=== PATIENT | female | born 1950 | race Caucasian/White ===

== ENCOUNTER 2022-12-05 09:43 | Inpatient (IN) ==
--- NOTE | 2022-12-05 10:14 | XRay Report ---
XR chest 1V portable HISTORY: 72 years-old Female Chest pain, nonspecific acute chest pain COMPARISON: None TECHNIQUE: AP view of the chest FINDINGS: Cardiac silhouette is enlarged. Pulmonary vascular congestion with interstitial coarsening. No pneumo thorax, large pleural effusion or lobar airspace consolidation. Degenerative changes of the shoulders and spine. IMPRESSION: Cardiomegaly with pulmonary vascular congestion. ACT 112: Negative or not required by law. The above report was generated using voice recognition software. It may contain grammatical, syntax o r spelling errors. Electronically signed by: Nam Aponte M.D. 12/05/2022 10:12 AM
--- NOTE | 2022-12-05 10:50 | Emergency Department Note ---
Impression & Plan Chest pain, Angina pectoris, unstable, Pulmonary edema, Congestive heart failure ED Provider Note INFORMANT: Patient ED PROVIDER(S): Harjit Quintanilla DO CHIEF COMPLAINT: Exertional chest pain PLAN: Disposition: Admission Condition: Good Outpatient prescription management: none Referral: I spoke with the hospitalist, who will see the patient for admission/observation and further evaluation and consultation. MEDICAL DECISION MAKING: This is a 72-year-old female who presents to the ED with a chief complaint of exertional chest pain. She also reports some shakiness. She was seen at the [facility] clinic today and was sent here for further evaluation of atrial fib rillation. The patient reports that she has a history of atrial fibrillation. She is chronically on Eliquis for this. The patient does report that her chest pain is associated with shortness of breath when she goes up the stairs. She states this resolves with rest. The patient denies any other significant symptoms. Her physical exam reveals diminished breath sounds bilaterally with some crackles in the bases. A chest x-ray shows evidence of pulmonary vascular congestion pulmonary edema. Twelve-lead EKG shows A-fib at a rate of 77. This is chronic. CBC was unremarkable. Chemistry panel was unremarkable for electrolyte abnormality.. Troponin was negative for myocardial infarction. The patient was treated with IV Lasix here. She will be seen by the hospitalist for further evaluation and care. Triage Nursing notes reviewed. Vital Signs: reviewed Prior /Outside records reviewed: [facility] notes reviewed from today. They show the patient arrived there for chest pain and shakiness. Chest pain off and on further notes. She was told to go to the emergency room the other day but did not want to go according to the notes. Chronically on apixaban for A-fib Differential diagnosis: Differential includes unstable angina, congestive heart failure, myocardial infarction, pericardial fusion, PE, other Diagnostics, as interpreted by me: 12 lead ECG: Atrial fibrillation rate of 77. PVC. No ST elevation. Atrial fibrillation is chronic. Cardiac Monitoring ordered: Atrial fibrillation with controlled ventricular response. Medical decision rules: none Imaging studies: Chest x-ray: Pulmonary edema Procedures: none. Critical care: none. HPI: See MDM above. PAST MEDICAL HISTORY: See Below PAST SURGICAL HISTORY: See Below SOCIAL HISTORY: See Below HOME MEDICATIONS: See Below ALLERGIES: See Below VITALS: See Below PHYSICAL EXAMINATION: CONSTITUTIONAL/VITAL SIGNS: Reviewed GENERAL: Non-toxic in appearance. INTEGUMENTARY: Warm, dry, and [place]. HEAD: Normocephalic. EYES: without scleral icterus. ENT/OROPHARYNX: clear and moist. RESPIRATORY: No increased work of breathing. Lungs clear. CARDIOVASCULAR: Regular rate. Regular rhythm. GI/ABDOMEN: Soft and nontender. . EXTREMITIES: Normal NEUROLOGICAL: Intact without focal deficits. PSYCHIATRIC: Normal affect. MUSCULOSKELETAL: Normal. TRIAGE NURSING DOCUMENTATION REVIEWED. Past Med/Surg History Social History Smoking Status: Never smoker Feels Safe at Home: Yes Results & Data (ED) Vital Signs Vital Signs - 24 hr 12/05/22 09:45 12/05/22 10:33 Temperature 36.7 C Temperature Source Oral Pulse Rate 85 79 Pulse Rate from SpO2 Sensor 82 Respiratory Rate 18 24 Blood Pressure 156/97 H 179/124 H Blood Pressure Mean 116 142 Pulse Oximetry 97 95 Oxygen Delivery Method Room Air Room Air Sepsis Recent Fever Within 48 Hours No Sepsis New/Unexplained Change in Mental Status No Sepsis Action Taken by Nursing No Action Required Laboratory Data 12/05/22 11:12 12/05/22 11:12 Lab Results 12/05/22 12/05/22 12/05/22 Range/Units 11:02 11:12 11:12 WBC 9.92 (4.8-10.8) K/ul RBC 4.62 (4.20-5.40) M/uL Hgb 14.2 (12.0-16.0) g/dl Hct 43.8 (37.0-47.0) % MCV 94.8 (80.0-100.0) fL MCH 30.7 (25.0-34.0) pg MCHC 32.4 (32.0-36.0) g/dL RDW Std Deviation 54.0 H (36.4-46.3) fL RDW Coeff of Yen 15.4 H (11.5-14.5) % Plt Count 256 (130-400) K/uL MPV 9.7 (9.4-12.4) fL Immature Gran % (Auto) 0.3 % Neut % (Auto) 73.2 % Lymph % (Auto) 18.1 % [place] % (Auto) 5.5 % Eos % (Auto) 2.6 % Baso % (Auto) 0.3 % Neut # (Auto) 7.25 H (1.40-6.50) K/uL Lymph # (Auto) 1.80 (1.2-3.4) K/uL [place] # (Auto) 0.55 (0.11-0.59) K/uL Eos # (Auto) 0.26 (0-0.50) K/uL Baso # (Auto) 0.03 (0-0.2) K/uL Immature Gran # (Auto) 0.03 (0.01-0.20) K/uL PT 11.9 (9.0-12.0) Seconds INR 1.1 (0.9-1.1) APTT 29.8 (21.0-31.0) Seconds PTT Ratio 1.1 Sodium (136-145) mmol/L Potassium (3.5-5.1) mmol/L Chloride (98-107) mmol/L Carbon Dioxide (21-32) mmol/L Anion Gap (3-11) BUN (6-23) mg/dl Creatinine (0.6-1.2) mg/dl Est Cr Clr Drug Dosing ml/min Est GFR ( Amer) ml/min Est GFR (Non-Af Amer) ml/min BUN/Creatinine Ratio (10-20) Glucose (70-99(Fasting)) mg/dl Calcium (8.5-10.1) mg/dl Total Bilirubin (0.2-1.0) mg/dl AST (13-39) U/L ALT (7-52) U/L Alkaline Phosphatase (34-104) U/L Troponin I High Sens (0-14) pg/ml Total Protein (6.0-8.3) gm/dl Albumin (3.4-5.0) gm/dl Globulin (2.5-4.0) gm/dl Albumin/Globulin Ratio (0.9-2) Lipase (11-82) U/L SARS-CoV-2, RNA, NAAT NEGATIVE (NEGATIVE) 12/05/22 Range/Units 11:12 WBC (4.8-10.8) K/ul RBC (4.20-5.40) M/uL Hgb (12.0-16.0) g/dl Hct (37.0-47.0) % MCV (80.0-100.0) fL MCH (25.0-34.0) pg MCHC (32.0-36.0) g/dL RDW Std Deviation (36.4-46.3) fL RDW Coeff of Yen (11.5-14.5) % Plt Count (130-400) K/uL MPV (9.4-12.4) fL Immature Gran % (Auto) % Neut % (Auto) % Lymph % (Auto) % [place] % (Auto) % Eos % (Auto) % Baso % (Auto) % Neut # (Auto) (1.40-6.50) K/uL Lymph # (Auto) (1.2-3.4) K/uL [place] # (Auto) (0.11-0.59) K/uL Eos # (Auto) (0-0.50) K/uL Baso # (Auto) (0-0.2) K/uL Immature Gran # (Auto) (0.01-0.20) K/uL PT (9.0-12.0) Seconds INR (0.9-1.1) APTT (21.0-31.0) Seconds PTT Ratio Sodium 139 (136-145) mmol/L Potassium 4.0 (3.5-5.1) mmol/L Chloride 103 (98-107) mmol/L Carbon Dioxide 28 (21-32) mmol/L Anion Gap 8 (3-11) BUN 16 (6-23) mg/dl Creatinine 0.79 (0.6-1.2) mg/dl Est Cr Clr Drug Dosing 67.5 ml/min Est GFR ( Amer) 86.7 ml/min Est GFR (Non-Af Amer) 74.8 ml/min BUN/Creatinine Ratio 20.3 H (10-20) Glucose 138 H (70-99(Fasting)) mg/dl Calcium 10.0 (8.5-10.1) mg/dl Total Bilirubin 1.1 H (0.2-1.0) mg/dl AST 15 (13-39) U/L ALT 16 (7-52) U/L Alkaline Phosphatase 140 H (34-104) U/L Troponin I High Sens 11.8 (0-14) pg/ml Total Protein 7.6 (6.0-8.3) gm/dl Albumin 4.0 (3.4-5.0) gm/dl Globulin 3.6 (2.5-4.0) gm/dl Albumin/Globulin Ratio 1.1 (0.9-2) Lipase 33 (11-82) U/L SARS-CoV-2, RNA, NAAT (NEGATIVE) Administered Medications Discontinued Medications Furosemide (Furosemide 40 Mg/4 Ml Vial) 40 mg IV ONE ONE Stop: 12/05/22 10:58 Last Admin: 12/05/22 11:10 Dose: 40 mg Documented By: KT Imaging Data Radiologist's Impression: Chest X-Ray 12/05/22 09:54 XR chest 1V portable HISTORY: 72 years-old Female Chest pain, nonspecific acute chest pain COMPARISON: None TECHNIQUE: AP view of the chest FINDINGS: Cardiac silhouette is enlarged. Pulmonary vascular congestion with interstitial coarsening. No pneumothorax, large pleural effusion or lobar airspace consolidation. Degenerative changes of the shoulders and spine. IMPRESSION: Cardiomegaly with pulmonary vascular congestion. ACT 112: Negative or not required by law. The above report was generated using voice recognition software. It may contain grammatical, syntax or spelling errors. Electronically signed by: Nam Aponte M.D. 12/05/2022 10:12 AM Discharge Plan Visit Data Chief Complaint: Abnormal Labs/Diagnostic Testing Stated Complaint: REF BY , ABNORMAL EKG ED Provider: Harjit Quintanilla Discharge Problem: Chest pain, Angina pectoris, unstable, Pulmonary edema, Congestive heart failure Patient Disposition: Being Evaluated by Hospitalist Forms Stand Alone Forms: My [facility] Referrals Referrals: PCP,NO [Primary Care Provider] -
[2022-12-05] MEDS ORDERED: FUROSEMIDE 40 MG/4 ML VIAL IV ONE (10:57)
[2022-12-05 11:44] LABS: Basophils # (auto) 0.03 K/uL (0-0.2); Basophils % (auto) 0.3 %; Eosinophils # (auto) 0.26 K/uL (0-0.50); Eosinophils % (auto) 2.6 %; Hematocrit (blood only) 43.8 % (37.0-47.0); Hemoglobin 14.2 g/dl (12.0-16.0); Immature Granulocytes # (auto) 0.03 K/uL (0.01-0.20); Immature Granulocytes % (auto) 0.3 %; Lymphocytes % (auto) 18.1 %; Mean Corpuscular Hemoglobin 30.7 pg (25.0-34.0); Mean Corpuscular Hgb Conc 32.4 g/dL (32.0-36.0); Mean Corpuscular Volume 94.8 fL (80.0-100.0); Mean Platelet Volume 9.7 fL (9.4-12.4); Monocytes # (auto) 0.55 K/uL (0.11-0.59); Monocytes % (auto) 5.5 %; Neutrophils # (auto) 7.25 K/uL (1.40-6.50); Neutrophils % (auto) 73.2 %; Platelet Count 256 K/uL (130-400); RDW Coefficient of Variation 15.4 % (11.5-14.5); Red Blood Count 4.62 M/uL (4.20-5.40); White Blood Count 9.92 K/ul (4.8-10.8)
[2022-12-05 12:01] LABS: INR 1.1 (0.9-1.1); Partial Thromboplastin Ratio 1.1; Partial Thromboplastin Time 29.8 Seconds (21.0-31.0); Prothrombin Time 11.9 Seconds (9.0-12.0)
[2022-12-05 12:21] LABS: Albumin Globulin Ratio 1.1 (0.9-2); BUN Creatinine Ratio 20.3 (10-20); Bilirubin,Total 1.1 mg/dl (0.2-1.0); Creatinine Clr Calc Pharmacy 67.5 ml/min; Est GFR (African American) 86.7 ml/min; Est GFR (Non-African American) 74.8 ml/min; Globulin 3.6 gm/dl (2.5-4.0); Total Protein 7.6 gm/dl (6.0-8.3)
[2022-12-05 12:25] LABS: Troponin I High Sensitivity 11.8 pg/ml (0-14)
--- NOTE | 2022-12-05 12:25 | Electrocardiogram Report ---
Test Reason : Blood Pressure : / mmHG Vent. Rate : 077 BPM Atrial Rate : 138 BPM P-R Int : 000 ms QRS Dur : 074 ms QT Int : 388 ms P-R-T Axes : 000 041 044 degrees QTc Int : 439 ms Atrial fibrillation with premature ventricular or aberrantly conducted complexes Low voltage QRS Abnormal ECG No previous ECGs available Confirmed by Ulises Archuleta ([id number]) on 12/05/2022 12:25:00 PM Referred By: REFERRED SELF Confirmed By:Ulises Archuleta
--- NOTE | 2022-12-05 12:59 | History & Physical Report ---
Date of Service December 05, 2022 Assessment & Plan (1) Pulmonary edema: Plan: 72 y/o female with a hx of chronic afib on Eliquis, HFpEF, DM2, COPD, HTN, and other PMH as outlined in the HPI who presented with s/s of worsening chronic HF and new exertional chest pain. CXR with pulmonary vascular congestion. Received furosemide 40 mg IV x 1 dose in the ED. Last ECHO in Aug 2022 showed preserved LVEF. Negative troponin in the ED with no acute changes noted on EKG (personally reviewed). - Admit to PCU - BP in the ED is elevated with systolic >190 - will order nitro paste, discussed with RN - Shannon cath, daily weight, measure Is and Os - Continue IV diuresis with furosemide 40 mg IV BID - Consult cardiology - Low sodium diet (2) Chest pain: Plan: None at rest but will continue to monitor - repeat EKG if develops chest pain with any exertion (3) (HFpEF) heart failure with preserved ejection fraction: Plan: See plan for #1 (4) Chronic atrial fibrillation: Plan: Rate controlled on metoprolol - will continue (5) Chronic anticoagulation: Plan: Due to chronic atrial fibrillation - continue Eliquis (6) Type 2 diabetes mellitus: Plan: Holding oral meds. Last A1c in Jun was 6.3 - Insulin sliding scale during admission - BSG ACHS - Diabetic diet (7) CKD (chronic kidney disease) stage 3, GFR 30-59 ml/min: Plan: Will need to monitor renal function and electrolytes with more aggressive diuresis. Labs ordered for AM (8) Essential hypertension: Plan: BP in the ED markedly elevated - pt has not yet taken her BP meds today. Nitro paste ordered, will resume home meds and monitor (9) Dyslipidemia: Plan: Continue statin Plan Pt seen and reviewed with collaborating physician, Dr. Park. Plan of care discussed and as outlined above. Continue baseline 2L O2 at HS. Code Status: Full Code DVT Prophylaxis: on chronic Eliquis Álvaro Dunn PA-C History of Present Illness Chief Complaint: Trouble breathing and chest discomfort with exertion Primary Care Provider: Allison Feldman MD This is a 72 y/o female with a PMH of chronic atrial fibrillation on chronic anticoagulation ([id number] 4), HFpEF, DM2, CKD3, HTN, COPD, dyslipidemia, ascending aorta dilatation, hx melanoma, and depression who was referred to the ED today by her PCP office after she presented with dyspnea, chest discomfort and shakiness with exertion for the last five days. They had referred her to the ED last week but she did not go that day and instead came for evaluation today in the PCP office who referred her to the ED. Pt reports she started with episodes of "shakiness" around end of 2021. These episodes mainly occur in her hands, may last hours, have gradually been increasing in duration. She has not noticed any specific pattern to them other than being worse in the evening. A few weeks ago, she also started with dyspnea on exertion that has also gradually worsened. She now will get short of breath even just walking to the bathroom. May have associated racing heart. Symptoms improve with rest although it usually takes 15-20 minutes to feel back to baseline. She notes two pillow orthopnea. Over the last few days to week, she has developed left chest pain with exertion, resolves with rest. May happen multiple times per day. Occasional dizziness with exertion or with changing positions, specifically when she stands up, but no syncopal episode. Denies pedal edema. Increased urinary frequency but no dysuria, hematuria. Appetite decreased at baseline - reports 25 lb unintentional weight loss over the last three months. Notes BP has been elevated when she checks it at home - last night BP 190s/120s. No routine meds yet today. Blood sugars at home in the 120s. Last A1c on 07/28/22 was 6.3. Most recent ECHO was in Aug 2022 - LVEF 60-64%, mild aortic regurgitation, mild mitral regurgitation, ascending aorta measuring 4.5 cm (measured 4.[address] same month). Allergies Allergy/AdvReac Type Severity Reaction Status Date / Time pentazocine [From Meera] AdvReac syncope Verified 12/05/22 12:53 pneumococcal vaccine AdvReac Diarrhea Verified 12/05/22 12:53 [From Reema 13 (PF)] Home Medications Medication Instructions Recorded Confirmed Type albuterol sulfate 2.5 mg/3 mL 2.5 mg inhalation QID PRN 12/05/22 12/05/22 History (0.083 %) solution for nebulization Shortness Of Breath Or Wheezing apixaban 5 mg tablet (Eliquis) 5 mg PO BID 12/05/22 12/05/22 History atorvastatin 40 mg tablet 40 mg PO DAILY 12/05/22 12/05/22 History cholestyramine (with sugar) 4 gram 1 ea PO BID 12/05/22 12/05/22 History powder for susp in a packet divalproex 500 mg tablet,delayed 500 mg PO BID 12/05/22 12/05/22 History release empagliflozin 25 mg tablet 25 mg PO DAILY 12/05/22 12/05/22 History (Jardiance) glipizide 2.5 mg tablet, extended 2.5 mg PO DAILY 12/05/22 12/05/22 History release 24 hr lisinopril 10 mg tablet 10 mg PO DAILY 12/05/22 12/05/22 History metformin 500 mg tablet,extended 1,000 mg PO BID17 12/05/22 12/05/22 History release 24 hr metoprolol succinate 50 mg 50 mg PO DAILY 12/05/22 12/05/22 History tablet,extended release 24 hr spironolactone 25 mg tablet 12.5 mg PO DAILY 12/05/22 12/05/22 History torsemide 10 mg tablet 10 mg PO QAM 12/05/22 12/05/22 History Past Med/Surg History Medical History (HFpEF) heart failure with preserved ejection fraction Ascending aorta dilatation Chronic anticoagulation Chronic atrial fibrillation CKD (chronic kidney disease) stage 3, GFR 30-59 ml/min COPD (chronic obstructive pulmonary disease) Dyslipidemia Essential hypertension Generalized tonic-clonic seizure History of melanoma History of meningioma History of stroke Type 2 diabetes mellitus Surgical History History of brain surgery removal of meningioma - 2006 History of History of cataract surgery History of cholecystectomy History of hysterectomy History of total knee arthroplasty Family History (Updated 12/05/22 @ 15:56 by Darby Dunn PA-C) Father Heart disease Mother Heart disease Social History (Updated 12/05/22 @ 12:58 by Darby Dunn PA-C) Smoking Status: Former smoker Second Hand Exposure: Yes; Do You Dip or Chew Tobacco: No; Tobacco Cessation Education Requested by Patient: No Hx Alcohol Use: No Preferred Language: Macedonian Communication Ability: 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 Beliefs That Will Affect Care: None Current Living Situation: Spouse and Family Other Information That Helps Us Care for You: No Feels Safe at Home: Yes Safety Concerns: Feels Safe At This Time Assistive Devices: Cane, Denture - Upper, Glasses and Oxygen - at Night Review of Systems Review of Systems: All systems reviewed & are unremarkable except as noted in HPI & below Constitutional: + fatigue and + weight loss (25 lbs per pt over the last three months); no fever, no chills and no sweats Eyes: no diplopia Ear, Nose, Mouth, Throat: no nasal congestion, no nasal discharge and no sore throat Respiratory: + cough and + dyspnea on exertion; no hemoptysis and no wheezing Cardiovascular: + chest pain with activity, + dyspnea on exertion and + orthopnea; no syncope and no edema Gastrointestinal: no nausea, no vomiting and no diarrhea/loose stools Genitourinary: + urinary frequency; no dysuria and no hematuria Musculoskeletal: + back pain Integumentary: no rash and no unusual bruising Neurologic: no paresthesia, no seizure-like activity and no headache(s) Psychiatric: no depression and no anxiety Physical Exam Constitutional: well developed and well nourished; no acute distress Eyes: PERRL, conjunctivae normal, anicteric sclerae ENMT: external ear and nose normal, oropharynx normal Neck: trachea midline Respiratory: no respiratory distress and no labored breathing Auscultation: lungs clear to auscultation bilaterally (other than minimal crackles at left base) Cardiovascular: Rate/Rhythm: + irregularly irregular Vessels: radial pulses present Extremities: no pedal edema Gastrointestinal (Abdomen): Inspection/Auscultation: normal bowel sounds; abdomen not distended Percussion/Palpation: abdomen soft; abdomen nontender Musculoskeletal: Head/Neck/Chest: normocephalic, head atraumatic and neck supple Skin: no jaundice Neurologic: moves all extremities; no focal motor deficits and not confused Psychiatric: A+Ox3, euthymic affect Results & Data Results & Data ([facility]) Vital Signs (Past 12 Hours) Vital Signs Temp Pulse Resp BP Pulse Ox O2 Del Method 12/05/22 10:33 79 24 179/124 H 95 Room Air 12/05/22 09:45 36.7 C 85 18 156/97 H 97 Room Air Laboratory Results Laboratory Results - last 24 hr 12/05/22 12/05/22 12/05/22 11:02 11:12 11:12 WBC 9.92 RBC 4.62 Hgb 14.2 Hct 43.8 MCV 94.8 MCH 30.7 MCHC 32.4 RDW Std Deviation 54.0 H RDW Coeff of Yen 15.4 H Plt Count 256 MPV 9.7 Immature Gran % (Auto) 0.3 Neut % (Auto) 73.2 Lymph % (Auto) 18.1 [place] % (Auto) 5.5 Eos % (Auto) 2.6 Baso % (Auto) 0.3 Neut # (Auto) 7.25 H Lymph # (Auto) 1.80 [place] # (Auto) 0.55 Eos # (Auto) 0.26 Baso # (Auto) 0.03 Immature Gran # (Auto) 0.03 PT 11.9 INR 1.1 APTT 29.8 PTT Ratio 1.1 Sodium Potassium Chloride Carbon Dioxide Anion Gap BUN Creatinine Est Cr Clr Drug Dosing Est GFR ( Amer) Est GFR (Non-Af Amer) BUN/Creatinine Ratio Glucose Calcium Total Bilirubin AST ALT Alkaline Phosphatase Troponin I High Sens Total Protein Albumin Globulin Albumin/Globulin Ratio Lipase SARS-CoV-2, RNA, NAAT NEGATIVE 12/05/22 11:12 WBC RBC Hgb Hct MCV MCH MCHC RDW Std Deviation RDW Coeff of Yen Plt Count MPV Immature Gran % (Auto) Neut % (Auto) Lymph % (Auto) [place] % (Auto) Eos % (Auto) Baso % (Auto) Neut # (Auto) Lymph # (Auto) [place] # (Auto) Eos # (Auto) Baso # (Auto) Immature Gran # (Auto) PT INR APTT PTT Ratio Sodium 139 Potassium 4.0 Chloride 103 Carbon Dioxide 28 Anion Gap 8 BUN 16 Creatinine 0.79 Est Cr Clr Drug Dosing 67.5 Est GFR ( Amer) 86.7 Est GFR (Non-Af Amer) 74.8 BUN/Creatinine Ratio 20.3 H Glucose 138 H Calcium 10.0 Total Bilirubin 1.1 H AST 15 ALT 16 Alkaline Phosphatase 140 H Troponin I High Sens 11.8 Total Protein 7.6 Albumin 4.0 Globulin 3.6 Albumin/Globulin Ratio 1.1 Lipase 33 SARS-CoV-2, RNA, NAAT Diagnostic Findings Chest X-ray 12/05/22 - IMPRESSION: Cardiomegaly with pulmonary vascular congestion. Medications Administered Discontinued Medications Furosemide (Furosemide 40 Mg/4 Ml Vial) 40 mg IV ONE ONE Stop: 12/05/22 10:58 Last Admin: 12/05/22 11:10 Dose: 40 mg Documented By: KT Supervising Physician Co-Signing Physician Notes I have seen and examined the patient and have discussed the case with the provider above. I agree with the assessment and plan as stated with the following exceptions. ATTENDING ADDENDUM: The patient is a 72-year-old female with a history of chronic persistent atrial fibrillation on Eliquis. She presents with worsening shortness of breath and exertional chest pain over the last couple of months. Symptoms reported are consistent with heart failure syndrome. She reports tremors in her hands bilaterally. She is on torsemide at home. She denies any leg swelling. She reports weight loss and states that she has had a low appetite. Family at bedside endorses that she eats small portions of food. On exam she is sitting up and in no acute distress. When she moves to readjust her self on the bed she becomes very winded and tachypneic, with difficulty on recovery. She is not requiring supplemental oxygen. Cardiac auscultation reveals S1/S2 with an irregular rhythm and normal rate, there are no murmurs heard. She has no peripheral edema. Lungs are clear to auscultation throughout. Abdomen is benign. Skin is warm and dry. She is mentating clearly with no gross focal neurologic deficits. Work-up in the ER included a normal CBC, normal chemistry, normal liver panel aside from an alk phos of 140. Lipase was 33 and SARS-CoV-2 was normal. Highly sensitive troponin was negative and there was no evidence of acute ischemia on EKG showing atrial fibrillation with a rate of [address] changes. BNP is pending. Imaging including a chest x-ray reveals cardiomegaly with pulmonary vascular congestion. This is a 72-year-old female being admitted for acute heart failure exacerbation, likely with preserved ejection fraction. Most recent echo was in August 2022 revealing an EF of 60 to 64% with concentric LVH. She responded well to the 40 mg of IV Lasix given in the ER with approximately 1800 cc out. As she was hypertensive with a blood pressure of 198/127, one dose of Nitropaste was added to the chest wall with blood pressure improving to 158/95. Continue diuretics twice daily as above, consult cardiology. Continue with daily standing weights and strict I's and O's, low-salt diet. Continue monitoring on telemetry and correct electrolytes as needed. Xavier,
[2022-12-05] MEDS ORDERED: NITROGLYCERIN 2% OINTMENT 30GM TUBE EXT ONE (13:58)
[2022-12-05] MEDS ORDERED: ACETAMINOPHEN 325 MG TAB PO PRN (15:09)
[2022-12-05] MEDS ORDERED: GLUCOSE 10 TAB/TUBE PO PRN (15:48)
[2022-12-05] MEDS ORDERED: CARBOHYDRATES FOR HYPOGLYCEMIA PO PRN (15:48)
[2022-12-05] MEDS ORDERED: GLUCAGON FOR INJ 1 MG VIAL SQ PRN (15:48)
[2022-12-05] MEDS ORDERED: DEXTROSE 50% 50 ML SYRINGE IV PRN (15:48)
[2022-12-05] MEDS ORDERED: GLUCOSE 40% GEL 15 GM TUBE PO PRN (15:48)
[2022-12-05] MEDS: INSULIN ASPART PER UNIT SC SCH ×2 (17:03→21:19)
[2022-12-05] MEDS: METOPROLOL SUCC 50MG EXT REL TAB PO SCH (17:04)
[2022-12-05] MEDS: lisinopril 10 MG TAB PO SCH (17:05)
--- NOTE | 2022-12-05 18:33 | Communication Note ---
Date of Service: December 05, 2022 ATTENDING ADDENDUM: The patient is a 72-year-old female with a history of chronic persistent atrial fibrillation on Eliquis. She presents with worsening shortness of breath and exertional chest pain over the last couple of months. Symptoms reported are consistent with heart failure syndrome. She reports tremors in her hands bilaterally. She is on torsemide at home. She denies any leg swelling. She reports weight loss and states that she has had a low appetite. Family at bedside endorses that she eats small portions of food. On exam she is sitting up and in no acute distress. When she moves to readjust her self on the bed she becomes very winded and tachypneic, with difficulty on recovery. She is not requiring supplemental oxygen. Cardiac auscultation reveals S1/S2 with an irregular rhythm and normal rate, there are no murmurs heard. She has no peripheral edema. Lungs are clear to auscultation throughout. Abdomen is benign. Skin is warm and dry. She is mentating clearly with no gross focal neurologic deficits. Work-up in the ER included a normal CBC, normal chemistry, normal liver panel aside from an alk phos of 140. Lipase was 33 and SARS-CoV-2 was normal. Highly sensitive troponin was negative and there was no evidence of acute ischemia on EKG showing atrial fibrillation with a rate of [address] changes. BNP is pending. Imaging including a chest x-ray reveals cardiomegaly with pulmonary vascular congestion. This is a 72-year-old female being admitted for acute heart failure exacerbation, likely with preserved ejection fraction. Most recent echo was in August 2022 revealing an EF of 60 to 64% with concentric LVH. She responded well to the 40 mg of IV Lasix given in the ER with approximately 1800 cc out. As she was hypertensive with a blood pressure of 198/127, one dose of Nitropaste was added to the chest wall with blood pressure improving to 158/95. Continue diuretics twice daily as above, consult cardiology. Continue with daily standing weights and strict I's and O's, low-salt diet. Continue monitoring on telemetry and correct electrolytes as needed. DO Xavier
[2022-12-05] MEDS: DIVALPROEX DELAY RELEASE 500 MG TAB PO SCH (21:26)
[2022-12-05] MEDS: APIXABAN 5 MG TABLET PO SCH (21:26)
[2022-12-05] MEDS: CHOLESTYRAMINE LIGHT 4 GM PKT PO SCH (21:27)
[2022-12-05] MEDS: FUROSEMIDE 40 MG/4 ML VIAL IV SCH (21:27)
[2022-12-06 08:08] LABS: Basophils # (auto) 0.04 K/uL (0-0.2); Basophils % (auto) 0.4 %; Eosinophils # (auto) 0.35 K/uL (0-0.50); Eosinophils % (auto) 3.7 %; Hematocrit (blood only) 44.1 % (37.0-47.0); Hemoglobin 14.3 g/dl (12.0-16.0); Immature Granulocytes # (auto) 0.04 K/uL (0.01-0.20); Immature Granulocytes % (auto) 0.4 %; Lymphocytes # (auto) 2.53 K/uL (1.2-3.4); Lymphocytes % (auto) 26.7 %; Mean Corpuscular Hemoglobin 30.4 pg (25.0-34.0); Mean Corpuscular Hgb Conc 32.4 g/dL (32.0-36.0); Mean Corpuscular Volume 93.6 fL (80.0-100.0); Monocytes # (auto) 0.74 K/uL (0.11-0.59); Monocytes % (auto) 7.8 %; Neutrophils # (auto) 5.77 K/uL (1.40-6.50); Platelet Count 286 K/uL (130-400); RDW Coefficient of Variation 15.2 % (11.5-14.5); RDW Standard Deviation 52.8 fL (36.4-46.3); Red Blood Count 4.71 M/uL (4.20-5.40); White Blood Count 9.47 K/ul (4.8-10.8)
[2022-12-06] MEDS: INSULIN ASPART PER UNIT SC SCH ×4 (08:14→20:11)
[2022-12-06 08:26] LABS: BUN Creatinine Ratio 20.7 (10-20); Calcium 10.8 mg/dl (8.5-10.1); Est GFR (African American) 72.1 ml/min; Est GFR (Non-African American) 62.2 ml/min; Magnesium 1.6 mg/dl (1.7-2.4); Potassium 3.8 mmol/L (3.5-5.1)
[2022-12-06] MEDS: APIXABAN 5 MG TABLET PO SCH ×2 (08:44→20:45)
[2022-12-06] MEDS: ATORVASTATIN 40 MG TAB PO SCH (08:45)
--- NOTE | 2022-12-06 08:45 | Hospitalist Progress Note ---
Date of Service December 06, 2022 Assessment & Plan (1) Pulmonary edema: Plan: 72 y/o female with a hx of chronic afib on Eliquis, HFpEF, DM2, COPD, HTN, and other PMH as outlined in the HPI who presented with s/s of worsening chronic HF and new exertional chest pain. CXR with pulmonary vascular congestion. Received furosemide 40 mg IV x 1 dose in the ED. Last ECHO in Aug 2022 showed preserved LVEF. Negative troponin in the ED with no acute changes noted on EKG - Admitted to PCU - BP in the ED elevated with systolic >190 - Shannon cath, daily weight, measure Is and Os - Low sodium diet - Continued IV diuresis with furosemide 40 mg IV BID - now on hold as pt diuresed well since her admission - Consulted cardiology - appreciate their input, metoprolol increased Echo repeated The rhythm is atrial fibrillation with intermittent rapid ventricular response. EF 60 to 65%. There is severe concentric LV hypertrophy. LA is moderately dilated. Mild aortic regurg. Mild tricuspid regurg. Estimated systolic pulmonary pressure is 38 mmHg. The ascending aorta is moderately enlarged, 4.5 cm. (2) Chest pain: Plan: None at rest but will continue to monitor - repeat EKG if develops chest pain with any exertion (3) (HFpEF) heart failure with preserved ejection fraction: Plan: See plan for #1 (4) Chronic atrial fibrillation: Plan: Rate controlled on metoprolol - will continue (5) Chronic anticoagulation: Plan: Due to chronic atrial fibrillation - continue Eliquis (6) Type 2 diabetes mellitus: Plan: Holding oral meds. Last A1c in Jun was 6.3 - Insulin sliding scale during admission - BSG ACHS - Diabetic diet (7) CKD (chronic kidney disease) stage 3, GFR 30-59 ml/min: Plan: monitor renal function and electrolytes while diuresing Labs ordered for AM (8) Essential hypertension: Plan: BP in the ED markedly elevated Now diuresed and metoprolol increased, BP improved - current 150/103 Cardiology following (9) Dyslipidemia: Plan: Continue statin Plan Continue baseline 2L O2 at HS. Code Status: Full Code DVT Prophylaxis: on chronic Eliquis Admission and Anticipated Discharge Date Admission Date: December 05, 2022 Subjective Patient seen follow-up of pulmonary edema, CHF, hypertensive urgency Currently patient is lying in bed, comfortable, breathing on room air, saturating 95% She diuresed quite well since her admission Blood pressure improved Denies any chest pain shortness of breath palpitations Denies any headache dizziness, lightheadedness Patient's at the bedside, and updated Review of Systems Review of Systems: All systems reviewed & are unremarkable except as noted in Subjective Physical Exam Physical Exam: Constitutional:L obese F in no acut e distress, on RA Eyes: PERRL, EOMI, conju nctivae normal, an icteric sclerae ENMT: external ear and n ose normal, oropha rynx normal Neck: supple Respiratory: no respiratory dis tress and no labor ed breathing, lung s clear to auscult ation bilaterally , no wheezing, no crackles Cardiovascular:L Rate/Rhythm: + irr egularly irregular Vessels: radial pulses present Ex tremities: no peda l edema Gastrointestinal ( Abdomen): Inspection/Auscult ation: normal danish l sounds; abdomen not distended Per cussion/Palpation: abdomen soft; abd omen nontender Musculoskeletal: Head/Neck/Chest: n ormocephalic, head atraumatic and ne ck supple Skin: no jaundice, warm, dry Neurologic: Speech fluent, no facial asymmetry, moves extremities spontaneously Psychiatric: A+Ox3, euthymic af fect Results & Data Results & Data ([facility]) Vital Signs (Past 12 Hours) Vital Signs Temp Pulse Pulse Resp BP BP Pulse Ox 12/06/22 08:42 87 130/79 12/06/22 03:11 36.7 C 78 18 140/84 91 12/05/22 20:50 12/05/22 22:49 36.6 C 86 18 129/103 H 90 O2 Del Method 12/06/22 08:42 12/06/22 03:11 Room Air 12/05/22 20:50 Room Air 12/05/22 22:49 Room Air Laboratory Results 12/06/22 12/06/22 12/06/22 Range/Units 07:41 07:41 07:27 WBC 9.47 (4.8-10.8) K/ul RBC 4.71 (4.20-5.40) M/uL Hgb 14.3 (12.0-16.0) g/dl Hct 44.1 (37.0-47.0) % MCV 93.6 (80.0-100.0) fL MCH 30.4 (25.0-34.0) pg MCHC 32.4 (32.0-36.0) g/dL RDW Std Deviation 52.8 H (36.4-46.3) fL RDW Coeff of Yen 15.2 H (11.5-14.5) % Plt Count 286 (130-400) K/uL MPV 10.0 (9.4-12.4) fL Immature Gran % (Auto) 0.4 % Neut % (Auto) 61.0 % Lymph % (Auto) 26.7 % [place] % (Auto) 7.8 % Eos % (Auto) 3.7 % Baso % (Auto) 0.4 % Neut # (Auto) 5.77 (1.40-6.50) K/uL Lymph # (Auto) 2.53 (1.2-3.4) K/uL [place] # (Auto) 0.74 H (0.11-0.59) K/uL Eos # (Auto) 0.35 (0-0.50) K/uL Baso # (Auto) 0.04 (0-0.2) K/uL Immature Gran # (Auto) 0.04 (0.01-0.20) K/uL PT (9.0-12.0) Seconds INR (0.9-1.1) APTT (21.0-31.0) Seconds PTT Ratio Sodium 138 (136-145) mmol/L Potassium 3.8 (3.5-5.1) mmol/L Chloride 97 L (98-107) mmol/L Carbon Dioxide 33 H (21-32) mmol/L Anion Gap 8 (3-11) BUN 19 (6-23) mg/dl Creatinine 0.92 (0.6-1.2) mg/dl Est Cr Clr Drug Dosing 57.0 ml/min Est GFR ( Amer) 72.1 ml/min Est GFR (Non-Af Amer) 62.2 ml/min BUN/Creatinine Ratio 20.7 H (10-20) Glucose 130 H (70-99(Fasting)) mg/dl POC Glucose 112 H (70-99) mg/dl Calcium 10.8 H (8.5-10.1) mg/dl Magnesium 1.6 L (1.7-2.4) mg/dl Total Bilirubin (0.2-1.0) mg/dl AST (13-39) U/L ALT (7-52) U/L Alkaline Phosphatase (34-104) U/L Troponin I High Sens (0-14) pg/ml B-Natriuretic Peptide (0-100) pg/ml Total Protein (6.0-8.3) gm/dl Albumin (3.4-5.0) gm/dl Globulin (2.5-4.0) gm/dl Albumin/Globulin Ratio (0.9-2) Lipase (11-82) U/L TSH (0.300-4.500) uIu/ml SARS-CoV-2, RNA, NAAT (NEGATIVE) 12/05/22 12/05/22 12/05/22 Range/Units 20:12 18:39 18:39 WBC (4.8-10.8) K/ul RBC (4.20-5.40) M/uL Hgb (12.0-16.0) g/dl Hct (37.0-47.0) % MCV (80.0-100.0) fL MCH (25.0-34.0) pg MCHC (32.0-36.0) g/dL RDW Std Deviation (36.4-46.3) fL RDW Coeff of Yen (11.5-14.5) % Plt Count (130-400) K/uL MPV (9.4-12.4) fL Immature Gran % (Auto) % Neut % (Auto) % Lymph % (Auto) % [place] % (Auto) % Eos % (Auto) % Baso % (Auto) % Neut # (Auto) (1.40-6.50) K/uL Lymph # (Auto) (1.2-3.4) K/uL [place] # (Auto) (0.11-0.59) K/uL Eos # (Auto) (0-0.50) K/uL Baso # (Auto) (0-0.2) K/uL Immature Gran # (Auto) (0.01-0.20) K/uL PT (9.0-12.0) Seconds INR (0.9-1.1) APTT (21.0-31.0) Seconds PTT Ratio Sodium (136-145) mmol/L Potassium (3.5-5.1) mmol/L Chloride (98-107) mmol/L Carbon Dioxide (21-32) mmol/L Anion Gap (3-11) BUN (6-23) mg/dl Creatinine (0.6-1.2) mg/dl Est Cr Clr Drug Dosing ml/min Est GFR ( Amer) ml/min Est GFR (Non-Af Amer) ml/min BUN/Creatinine Ratio (10-20) Glucose (70-99(Fasting)) mg/dl POC Glucose 111 H (70-99) mg/dl Calcium (8.5-10.1) mg/dl Magnesium (1.7-2.4) mg/dl Total Bilirubin (0.2-1.0) mg/dl AST (13-39) U/L ALT (7-52) U/L Alkaline Phosphatase (34-104) U/L Troponin I High Sens (0-14) pg/ml B-Natriuretic Peptide 162 H (0-100) pg/ml Total Protein (6.0-8.3) gm/dl Albumin (3.4-5.0) gm/dl Globulin (2.5-4.0) gm/dl Albumin/Globulin Ratio (0.9-2) Lipase (11-82) U/L TSH 3.143 (0.300-4.500) uIu/ml SARS-CoV-2, RNA, NAAT (NEGATIVE) 12/05/22 12/05/22 12/05/22 Range/Units 16:28 11:12 11:12 WBC (4.8-10.8) K/ul RBC (4.20-5.40) M/uL Hgb (12.0-16.0) g/dl Hct (37.0-47.0) % MCV (80.0-100.0) fL MCH (25.0-34.0) pg MCHC (32.0-36.0) g/dL RDW Std Deviation (36.4-46.3) fL RDW Coeff of Yen (11.5-14.5) % Plt Count (130-400) K/uL MPV (9.4-12.4) fL Immature Gran % (Auto) % Neut % (Auto) % Lymph % (Auto) % [place] % (Auto) % Eos % (Auto) % Baso % (Auto) % Neut # (Auto) (1.40-6.50) K/uL Lymph # (Auto) (1.2-3.4) K/uL [place] # (Auto) (0.11-0.59) K/uL Eos # (Auto) (0-0.50) K/uL Baso # (Auto) (0-0.2) K/uL Immature Gran # (Auto) (0.01-0.20) K/uL PT 11.9 (9.0-12.0) Seconds INR 1.1 (0.9-1.1) APTT 29.8 (21.0-31.0) Seconds PTT Ratio 1.1 Sodium 139 (136-145) mmol/L Potassium 4.0 (3.5-5.1) mmol/L Chloride 103 (98-107) mmol/L Carbon Dioxide 28 (21-32) mmol/L Anion Gap 8 (3-11) BUN 16 (6-23) mg/dl Creatinine 0.79 (0.6-1.2) mg/dl Est Cr Clr Drug Dosing 67.5 ml/min Est GFR ( Amer) 86.7 ml/min Est GFR (Non-Af Amer) 74.8 ml/min BUN/Creatinine Ratio 20.3 H (10-20) Glucose 138 H (70-99(Fasting)) mg/dl POC Glucose 113 H (70-99) mg/dl Calcium 10.0 (8.5-10.1) mg/dl Magnesium (1.7-2.4) mg/dl Total Bilirubin 1.1 H (0.2-1.0) mg/dl AST 15 (13-39) U/L ALT 16 (7-52) U/L Alkaline Phosphatase 140 H (34-104) U/L Troponin I High Sens 11.8 (0-14) pg/ml B-Natriuretic Peptide (0-100) pg/ml Total Protein 7.6 (6.0-8.3) gm/dl Albumin 4.0 (3.4-5.0) gm/dl Globulin 3.6 (2.5-4.0) gm/dl Albumin/Globulin Ratio 1.1 (0.9-2) Lipase 33 (11-82) U/L TSH (0.300-4.500) uIu/ml SARS-CoV-2, RNA, NAAT (NEGATIVE) 12/05/22 12/05/22 Range/Units 11:12 11:02 WBC 9.92 (4.8-10.8) K/ul RBC 4.62 (4.20-5.40) M/uL Hgb 14.2 (12.0-16.0) g/dl Hct 43.8 (37.0-47.0) % MCV 94.8 (80.0-100.0) fL MCH 30.7 (25.0-34.0) pg MCHC 32.4 (32.0-36.0) g/dL RDW Std Deviation 54.0 H (36.4-46.3) fL RDW Coeff of Yen 15.4 H (11.5-14.5) % Plt Count 256 (130-400) K/uL MPV 9.7 (9.4-12.4) fL Immature Gran % (Auto) 0.3 % Neut % (Auto) 73.2 % Lymph % (Auto) 18.1 % [place] % (Auto) 5.5 % Eos % (Auto) 2.6 % Baso % (Auto) 0.3 % Neut # (Auto) 7.25 H (1.40-6.50) K/uL Lymph # (Auto) 1.80 (1.2-3.4) K/uL [place] # (Auto) 0.55 (0.11-0.59) K/uL Eos # (Auto) 0.26 (0-0.50) K/uL Baso # (Auto) 0.03 (0-0.2) K/uL Immature Gran # (Auto) 0.03 (0.01-0.20) K/uL PT (9.0-12.0) Seconds INR (0.9-1.1) APTT (21.0-31.0) Seconds PTT Ratio Sodium (136-145) mmol/L Potassium (3.5-5.1) mmol/L Chloride (98-107) mmol/L Carbon Dioxide (21-32) mmol/L Anion Gap (3-11) BUN (6-23) mg/dl Creatinine (0.6-1.2) mg/dl Est Cr Clr Drug Dosing ml/min Est GFR ( Amer) ml/min Est GFR (Non-Af Amer) ml/min BUN/Creatinine Ratio (10-20) Glucose (70-99(Fasting)) mg/dl POC Glucose (70-99) mg/dl Calcium (8.5-10.1) mg/dl Magnesium (1.7-2.4) mg/dl Total Bilirubin (0.2-1.0) mg/dl AST (13-39) U/L ALT (7-52) U/L Alkaline Phosphatase (34-104) U/L Troponin I High Sens (0-14) pg/ml B-Natriuretic Peptide (0-100) pg/ml Total Protein (6.0-8.3) gm/dl Albumin (3.4-5.0) gm/dl Globulin (2.5-4.0) gm/dl Albumin/Globulin Ratio (0.9-2) Lipase (11-82) U/L TSH (0.300-4.500) uIu/ml SARS-CoV-2, RNA, NAAT NEGATIVE (NEGATIVE) Medications Administered Current Inpatient Medications Acetaminophen (Acetaminophen 325 Mg Tab) 650 mg PO Q4H PRN PRN Reason: Pain or Fever Stop: 01/04/23 15:08 Apixaban (Apixaban 5 Mg Tablet) 5 mg PO BID NENA Stop: 01/04/23 20:59 Last Admin: 12/05/22 21:26 Dose: 5 mg Atorvastatin Calcium (Atorvastatin 40 Mg Tab) 40 mg PO DAILY NENA Stop: 01/05/23 08:59 Cholestyramine Resin (Cholestyramine Light 4 Gm Pkt) 4 gm PO BID@1000,2200 NENA Stop: 01/04/23 21:59 Last Admin: 12/05/22 21:27 Dose: 4 gm Dextrose (Dextrose 50% 50 Ml Syringe) 25 - 50 ml IV UD PRN; Protocol PRN Reason: Hypoglycemia Protocol Stop: 01/04/23 15:47 Divalproex Sodium (Divalproex Delay Release 500 Mg Tab) 500 mg PO BID NENA Stop: 01/04/23 20:59 Last Admin: 12/05/22 21:26 Dose: 500 mg Furosemide (Furosemide 40 Mg/4 Ml Vial) 40 mg IV BID17 NENA Stop: 01/04/23 20:59 Last Admin: 12/05/22 21:27 Dose: 40 mg Glucagon (Glucagon For Inj 1 Mg Vial) 1 mg SQ UD PRN; Protocol PRN Reason: Hypoglycemia Protocol Stop: 01/04/23 15:47 Glucose (Glucose 40% Gel 15 Gm Tube) 15 - 30 gm PO UD PRN; Protocol PRN Reason: Hypoglycemia Protocol Stop: 01/04/23 15:47 Glucose (Glucose 10 Tab/Tube) 4 - 8 tab PO UD PRN; Protocol PRN Reason: Hypoglycemia Treatment Stop: 01/04/23 15:47 Insulin Aspart (Insulin Aspart Per Unit) 0 units SC ACHS NENA Stop: 01/04/23 16:29 Last Admin: 12/06/22 08:14 Dose: 8 units Lisinopril (Lisinopril 10 Mg Tab) 10 mg PO DAILY NENA Stop: 01/04/23 15:59 Last Admin: 12/05/22 17:05 Dose: 10 mg Magnesium Oxide (Magnesium Oxide 400 Mg Tab) 400 mg PO BID NENA Stop: 01/05/23 08:59 Metoprolol Succinate (Metoprolol Succ 50mg Ext Rel Tab) 50 mg PO DAILY NENA Stop: 01/04/23 15:59 Last Admin: 12/05/22 17:04 Dose: 50 mg Miscellaneous (Carbohydrates For Hypoglycemia ) 15 - 30 gm PO UD PRN PRN Reason: Hypoglycemia Protocol Stop: 01/04/23 15:47
[2022-12-06] MEDS: DIVALPROEX DELAY RELEASE 500 MG TAB PO SCH ×2 (08:46→20:45)
[2022-12-06] MEDS: FUROSEMIDE 40 MG/4 ML VIAL IV SCH (08:47)
[2022-12-06] MEDS: lisinopril 10 MG TAB PO SCH (08:52)
[2022-12-06] MEDS: METOPROLOL SUCC 50MG EXT REL TAB PO SCH (08:53)
[2022-12-06] MEDS: MAGNESIUM OXIDE 400 MG TAB PO SCH ×2 (08:54→20:46)
--- NOTE | 2022-12-06 09:35 | Cardiology Consultation ---
Date of Consultation December 06, 2022 Assessment & Plan (1) Hypertensive urgency, malignant: (2) Pulmonary edema: (3) (HFpEF) heart failure with preserved ejection fraction: (4) Chronic atrial fibrillation: Plan Patient is a complex 72-year-old female with longstanding persistent atrial fibrillation, hypertension with chronic diastolic heart failure who had subacute presentation of worsening dyspnea fatigue "shakiness" and worsening respiratory distress resulting in ER presentation. On evaluation patient with marked hypertension and evidence of pulmonary edema on chest x-ray Patient has responded to diuretics briskly 1. Acute on chronic diastolic heart failure with hypertensive urgency: Patient has responded promptly to diuretics. Blood pressure improved. Will increase metoprolol succinate but additional 25 mg every afternoon. Hold IV furosemide after dose this morning likely resume spironolactone and torsemide in a.m. depending on results of chest x-ray ordered Echocardiogram will be reviewed given acute decompensation, reassess LV systolic function, degree of aortic insufficiency as well as aortic root and ascending aorta size 2. Ascending aortic aneurysm as above 3. Unexplained weight loss. Repeat chest x-ray ordered for a.m. given granulomatous disease on past studies Cardiology will continue to follow History of Present Illness Reason for Consultation: Hypertensive urgency, pulmonary edema Requesting Physician: Dr. Park Attending Physician: Kushal Cummins MD History of Present Illness Patient is a 72-year-old female with longstanding issues of 1. Persistent atrial fibrillation on chronic anticoagulation 2. Hypertension with diastolic LV dysfunction 3. Type 2 diabetes mellitus 4. Hyperlipidemia 5. Ascending aortic aneurysm Patient presents this admission feeling poorly for greater than 1 week with shaky breathlessness and difficulty climbing stairs. Several days increasing difficulty with dyspnea with minimal exertion. Patient sought evaluation at PCP who transferred to emergency room for further evaluation due to respiratory distress On presentation patient markedly hypertensive 198/127 Chest x-ray reflective of pulmonary edema Patient has responded to therapies with brisk diuresis. More comfortable this morning dyspnea and "shakiness improved. No chest pains or discomfort No fevers chills or unexplained infections No bleeding difficulties on chronic anticoagulation At least 30 pound weight loss over the past 6 months undefined Allergies Allergy/AdvReac Type Severity Reaction Status Date / Time pentazocine [From Meera] AdvReac syncope Verified 12/05/22 12:53 pneumococcal vaccine AdvReac Diarrhea Verified 12/05/22 12:53 [From Prevquentin 13 (PF)] Home Medications Medication Instructions Recorded Confirmed Type albuterol sulfate 2.5 mg/3 mL 2.5 mg inhalation QID PRN 12/05/22 12/05/22 History (0.083 %) solution for nebulization Shortness Of Breath Or Wheezing apixaban 5 mg tablet (Eliquis) 5 mg PO BID 12/05/22 12/05/22 History atorvastatin 40 mg tablet 40 mg PO DAILY 12/05/22 12/05/22 History cholestyramine (with sugar) 4 gram 1 ea PO BID 12/05/22 12/05/22 History powder for susp in a packet divalproex 500 mg tablet,delayed 500 mg PO BID 12/05/22 12/05/22 History release empagliflozin 25 mg tablet 25 mg PO DAILY 12/05/22 12/05/22 History (Jardiance) glipizide 2.5 mg tablet, extended 2.5 mg PO DAILY 12/05/22 12/05/22 History release 24 hr lisinopril 10 mg tablet 10 mg PO DAILY 12/05/22 12/05/22 History metformin 500 mg tablet,extended 1,000 mg PO BID17 12/05/22 12/05/22 History release 24 hr metoprolol succinate 50 mg 50 mg PO DAILY 12/05/22 12/05/22 History tablet,extended release 24 hr spironolactone 25 mg tablet 12.5 mg PO DAILY 12/05/22 12/05/22 History torsemide 10 mg tablet 10 mg PO QAM 12/05/22 12/05/22 History Patient History Medical History (HFpEF) heart failure with preserved ejection fraction Ascending aorta dilatation Chronic anticoagulation Chronic atrial fibrillation CKD (chronic kidney disease) stage 3, GFR 30-59 ml/min COPD (chronic obstructive pulmonary disease) Dyslipidemia Essential hypertension Generalized tonic-clonic seizure History of melanoma History of meningioma History of stroke Type 2 diabetes mellitus Surgical History History of brain surgery removal of meningioma - 2006 History of History of cataract surgery History of cholecystectomy History of hysterectomy History of total knee arthroplasty Family History Father Heart disease Mother Heart disease Social History Smoking Status: Former smoker Second Hand Exposure: Yes; Do You Dip or Chew Tobacco: No; Tobacco Cessation Education Requested by Patient: No Hx Alcohol Use: No Preferred Language: Malay Communication Ability: Effective Button Inspector Required: No Beliefs That Will Affect Care: None Current Living Situation: Spouse and Family Other Information That Helps Us Care for You: No Feels Safe at Home: Yes Safety Concerns: Feels Safe At This Time Assistive Devices: Cane, Denture - Upper, Glasses and Oxygen - at Night Review of Systems Review of Systems: All systems reviewed & are unremarkable except as noted in HPI & below Physical Exam Constitutional: + obese; no acute distress Eyes: PERRL, conjunctivae normal, anicteric sclerae ENMT: external ear and nose normal, oropharynx normal Neck: trachea midline, no thyromegaly Respiratory: normal respiratory effort, lungs clear to auscultation Cardiovascular: Rate/Rhythm: regular rate and regular rhythm Heart Sounds: normal S1, normal S2 and + murmur (Grade 1/6 systolic, no diastolic); no gallop Palpation: normal PMI Vessels: normal carotid upstroke and radial pulses present; no JVD and no carotid bruit Extremities: no edema Gastrointestinal (Abdomen): normal bowel sounds, soft, nontender, no hepatosplenomegaly Musculoskeletal: no cyanosis or clubbing, extremities motor strength 5/5 Skin: no rashes, warm and dry Neurologic: PERRL, EOMI, accommodation nl, no face palsy, no dysarthria Psychiatric: A+Ox3, euthymic affect Results & Data ([facility]) Vital Signs (Past 12 Hours) Vital Signs Temp Pulse Pulse Resp BP BP Pulse Ox 12/06/22 08:00 12/06/22 08:42 87 130/79 12/06/22 03:11 36.7 C 78 18 140/84 91 12/05/22 22:49 36.6 C 86 18 129/103 H 90 O2 Del Method 12/06/22 08:00 Room Air 12/06/22 08:42 12/06/22 03:11 Room Air 12/05/22 22:49 Room Air Laboratory Results Laboratory Results - last 24 hr 12/05/22 12/05/22 12/05/22 11:02 11:12 11:12 WBC 9.92 RBC 4.62 Hgb 14.2 Hct 43.8 MCV 94.8 MCH 30.7 MCHC 32.4 RDW Std Deviation 54.0 H RDW Coeff of Yen 15.4 H Plt Count 256 MPV 9.7 Immature Gran % (Auto) 0.3 Neut % (Auto) 73.2 Lymph % (Auto) 18.1 [place] % (Auto) 5.5 Eos % (Auto) 2.6 Baso % (Auto) 0.3 Neut # (Auto) 7.25 H Lymph # (Auto) 1.80 [place] # (Auto) 0.55 Eos # (Auto) 0.26 Baso # (Auto) 0.03 Immature Gran # (Auto) 0.03 PT 11.9 INR 1.1 APTT 29.8 PTT Ratio 1.1 Sodium Potassium Chloride Carbon Dioxide Anion Gap BUN Creatinine Est Cr Clr Drug Dosing Est GFR ( Amer) Est GFR (Non-Af Amer) BUN/Creatinine Ratio Glucose POC Glucose Calcium Magnesium Total Bilirubin AST ALT Alkaline Phosphatase Troponin I High Sens B-Natriuretic Peptide Total Protein Albumin Globulin Albumin/Globulin Ratio Lipase TSH SARS-CoV-2, RNA, NAAT NEGATIVE 12/05/22 12/05/22 12/05/22 11:12 16:28 18:39 WBC RBC Hgb Hct MCV MCH MCHC RDW Std Deviation RDW Coeff of Yen Plt Count MPV Immature Gran % (Auto) Neut % (Auto) Lymph % (Auto) [place] % (Auto) Eos % (Auto) Baso % (Auto) Neut # (Auto) Lymph # (Auto) [place] # (Auto) Eos # (Auto) Baso # (Auto) Immature Gran # (Auto) PT INR APTT PTT Ratio Sodium 139 Potassium 4.0 Chloride 103 Carbon Dioxide 28 Anion Gap 8 BUN 16 Creatinine 0.79 Est Cr Clr Drug Dosing 67.5 Est GFR ( Amer) 86.7 Est GFR (Non-Af Amer) 74.8 BUN/Creatinine Ratio 20.3 H Glucose 138 H POC Glucose 113 H Calcium 10.0 Magnesium Total Bilirubin 1.1 H AST 15 ALT 16 Alkaline Phosphatase 140 H Troponin I High Sens 11.8 B-Natriuretic Peptide Total Protein 7.6 Albumin 4.0 Globulin 3.6 Albumin/Globulin Ratio 1.1 Lipase 33 TSH 3.143 SARS-CoV-2, RNA, NAAT 12/05/22 12/05/22 12/06/22 18:39 20:12 07:27 WBC RBC Hgb Hct MCV MCH MCHC RDW Std Deviation RDW Coeff of Yen Plt Count MPV Immature Gran % (Auto) Neut % (Auto) Lymph % (Auto) [place] % (Auto) Eos % (Auto) Baso % (Auto) Neut # (Auto) Lymph # (Auto) [place] # (Auto) Eos # (Auto) Baso # (Auto) Immature Gran # (Auto) PT INR APTT PTT Ratio Sodium Potassium Chloride Carbon Dioxide Anion Gap BUN Creatinine Est Cr Clr Drug Dosing Est GFR ( Amer) Est GFR (Non-Af Amer) BUN/Creatinine Ratio Glucose POC Glucose 111 H 112 H Calcium Magnesium Total Bilirubin AST ALT Alkaline Phosphatase Troponin I High Sens B-Natriuretic Peptide 162 H Total Protein Albumin Globulin Albumin/Globulin Ratio Lipase TSH SARS-CoV-2, RNA, NAAT 12/06/22 12/06/22 07:41 07:41 WBC 9.47 RBC 4.71 Hgb 14.3 Hct 44.1 MCV 93.6 MCH 30.4 MCHC 32.4 RDW Std Deviation 52.8 H RDW Coeff of Yen 15.2 H Plt Count 286 MPV 10.0 Immature Gran % (Auto) 0.4 Neut % (Auto) 61.0 Lymph % (Auto) 26.7 [place] % (Auto) 7.8 Eos % (Auto) 3.7 Baso % (Auto) 0.4 Neut # (Auto) 5.77 Lymph # (Auto) 2.53 [place] # (Auto) 0.74 H Eos # (Auto) 0.35 Baso # (Auto) 0.04 Immature Gran # (Auto) 0.04 PT INR APTT PTT Ratio Sodium 138 Potassium 3.8 Chloride 97 L Carbon Dioxide 33 H Anion Gap 8 BUN 19 Creatinine 0.92 Est Cr Clr Drug Dosing 57.0 Est GFR ( Amer) 72.1 Est GFR (Non-Af Amer) 62.2 BUN/Creatinine Ratio 20.7 H Glucose 130 H POC Glucose Calcium 10.8 H Magnesium 1.6 L Total Bilirubin AST ALT Alkaline Phosphatase Troponin I High Sens B-Natriuretic Peptide Total Protein Albumin Globulin Albumin/Globulin Ratio Lipase TSH SARS-CoV-2, RNA, NAAT Diagnostic Findings Echocardiogram August 2022 The qualitative LV ejection fraction is 60-64% (normal). The LV wall thickness is moderately increased (concentric). The left atrium is moderately enlarged (42-48 ml/m^2). Mild aortic valve regurgitation is present. Mild mitral regurgitation is present. The aortic root is normal sized. The ascending aorta is moderately enlarged, 4.5 cm. Compared to prior study of 10/29/2019, there is no significant change. Chest x-ray 12/05/2022 Increased interstitial markings consistent with pulmonary edema likely superimposed on component of granulomatous disease ECG Additional Comments: EKG 12/05/2022 Atrial fibrillation 77 bpm with low voltage QRS otherwise normal tracing
[2022-12-06] MEDS: CHOLESTYRAMINE LIGHT 4 GM PKT PO SCH ×2 (10:25→21:11)
[2022-12-06] MEDS ORDERED: METOPROLOL SUCC 25MG EXT REL TAB PO SCH (21:00)
[2022-12-06] MEDS ORDERED: amLODIPine BESYLATE 5 MG TAB PO ONE (21:30)
[2022-12-07 06:40] LABS: Basophils # (auto) 0.04 K/uL (0-0.2); Basophils % (auto) 0.4 %; Eosinophils # (auto) 0.36 K/uL (0-0.50); Eosinophils % (auto) 3.3 %; Hematocrit (blood only) 41.7 % (37.0-47.0); Hemoglobin 13.9 g/dl (12.0-16.0); Immature Granulocytes # (auto) 0.05 K/uL (0.01-0.20); Immature Granulocytes % (auto) 0.5 %; Lymphocytes # (auto) 2.91 K/uL (1.2-3.4); Lymphocytes % (auto) 26.7 %; Mean Corpuscular Hemoglobin 30.5 pg (25.0-34.0); Mean Corpuscular Hgb Conc 33.3 g/dL (32.0-36.0); Mean Corpuscular Volume 91.6 fL (80.0-100.0); Monocytes # (auto) 1.11 K/uL (0.11-0.59); Monocytes % (auto) 10.2 %; Neutrophils # (auto) 6.42 K/uL (1.40-6.50); Neutrophils % (auto) 58.9 %; Platelet Count 252 K/uL (130-400); RDW Coefficient of Variation 15.1 % (11.5-14.5); RDW Standard Deviation 51.1 fL (36.4-46.3); Red Blood Count 4.55 M/uL (4.20-5.40); White Blood Count 10.89 K/ul (4.8-10.8)
[2022-12-07 06:54] LABS: BUN Creatinine Ratio 26.1 (10-20); Calcium 10.6 mg/dl (8.5-10.1); Creatinine Clr Calc Pharmacy 47.2 ml/min; Est GFR (African American) 57.5 ml/min; Est GFR (Non-African American) 49.6 ml/min; Phosphorus 4.2 mg/dl (2.5-4.9)
--- NOTE | 2022-12-07 07:20 | XRay Report ---
XR chest 1V portable HISTORY: Shortness of breath. Congestive heart failure COMPARISON: Chest 12/05/2022. FINDINGS: No pneumothorax. No pleural effusions. There are low lung volumes. The heart remains mildly enlarged. There is progressive interstitial/vascular thickening suggestive of mild pulmonary edema. Old, healed right humeral neck fracture again noted. IMPRESSION: Cardiomegaly with interval progression of the mild pulmonary edema. ACT 112: Negative or not required by law. Electronically signed by: Federico Rubi M.D. 12/07/2022 7:19 AM
[2022-12-07] MEDS: APIXABAN 5 MG TABLET PO SCH ×2 (08:29→20:30)
[2022-12-07] MEDS: MAGNESIUM OXIDE 400 MG TAB PO SCH ×2 (08:29→20:31)
[2022-12-07] MEDS: lisinopril 10 MG TAB PO SCH (08:30)
[2022-12-07] MEDS: DIVALPROEX DELAY RELEASE 500 MG TAB PO SCH ×2 (08:30→20:31)
[2022-12-07] MEDS: ATORVASTATIN 40 MG TAB PO SCH (08:30)
[2022-12-07] MEDS: INSULIN ASPART PER UNIT SC SCH ×4 (08:49→20:18)
[2022-12-07] MEDS ORDERED: METOPROLOL SUCC 50MG EXT REL TAB PO SCH (09:00)
--- NOTE | 2022-12-07 09:11 | Cardiology Progress Note ---
Date of Service December 07, 2022 Assessment & Plan (1) Hypertensive urgency, malignant: (2) Pulmonary edema: (3) (HFpEF) heart failure with preserved ejection fraction: (4) Chronic atrial fibrillation: Plan Patient is a complex 72-year-old female with longstanding persistent atrial fibrillation, hypertension with chronic diastolic heart failure who had subacute presentation of worsening dyspnea fatigue "shakiness" and worsening respiratory distress resulting in ER presentation. On evaluation patient with marked hypertension and evidence of pulmonary edema on chest x-ray Patient has responded to diuretics briskly 1. Acute on chronic diastolic heart failure with hypertensive urgency: Patient has responded promptly to diuretics. Echo demonstrates severe left hypertrophy with small ventricle. 2. Ascending aortic aneurysm as above, stable on 3. Unexplained weight loss. Repeat chest x-ray ordered for a.m. given granulomatous disease on past studies We will continue to adjust medications. Patient previously on good diastolic regimen including spironolactone and Jardiance We will increase metoprolol succinate to 50 mg twice per day Resume oral diuretics with torsemide 20 mg daily spironolactone 12.5 mg/day. Exam is not consistent with significant volume overload Add amlodipine 5 mg nightly for additional hypertension control. (Received dose last night) Admission and Anticipated Discharge Date Admission Date: December 05, 2022 Subjective Patient was seen and examined, chart, medications, telemetry reviewed Feels shaky this morning but less breathless. Brisk diuresis since admission. Blood pressure still trending high No arrhythmias on telemetry other than baseline atrial fibrillation Review of Systems Review of Systems: All systems reviewed & are unremarkable except as noted in Subjective Physical Exam Constitutional: + obese; no acute distress Eyes: PERRL, conjunctivae normal, anicteric sclerae ENMT: external ear and nose normal, oropharynx normal Neck: trachea midline, no thyromegaly Respiratory: normal respiratory effort, lungs clear to auscultation Cardiovascular: Rate/Rhythm: regular rate and regular rhythm Heart Sounds: normal S1, normal S2 and + murmur (Grade 1/6 systolic, no diastolic); no gallop Palpation: normal PMI Vessels: normal carotid upstroke and radial pulses present; no JVD and no carotid bruit Extremities: no edema Gastrointestinal (Abdomen): normal bowel sounds, soft, nontender, no hepatosplenomegaly Musculoskeletal: no cyanosis or clubbing, extremities motor strength 5/5 Skin: no rashes, warm and dry Neurologic: PERRL, EOMI, accommodation nl, no face palsy, no dysarthria Psychiatric: A+Ox3, euthymic affect Results & Data ([facility]) Vital Signs (Past 12 Hours) Vital Signs Temp Pulse Pulse Resp BP BP Pulse Ox 12/07/22 07:21 36.8 C 91 H 19 156/102 H 97 12/07/22 02:27 36.7 C 78 18 143/82 H 96 12/06/22 23:00 94 H 12/06/22 22:34 36.7 C 66 18 133/76 94 O2 Del Method 12/07/22 07:21 Room Air 12/07/22 02:27 Room Air 12/06/22 23:00 12/06/22 22:34 Room Air Laboratory Results Laboratory Results - last 24 hr 12/06/22 12/06/22 12/06/22 11:17 15:56 19:56 WBC RBC Hgb Hct MCV MCH MCHC RDW Std Deviation RDW Coeff of Yen Plt Count MPV Immature Gran % (Auto) Neut % (Auto) Lymph % (Auto) [place] % (Auto) Eos % (Auto) Baso % (Auto) Neut # (Auto) Lymph # (Auto) [place] # (Auto) Eos # (Auto) Baso # (Auto) Immature Gran # (Auto) Sodium Potassium Chloride Carbon Dioxide Anion Gap BUN Creatinine Est Cr Clr Drug Dosing Est GFR ( Amer) Est GFR (Non-Af Amer) BUN/Creatinine Ratio Glucose POC Glucose 78 175 H 106 H Calcium Phosphorus Magnesium 12/07/22 12/07/22 12/07/22 06:06 06:06 07:18 WBC 10.89 H RBC 4.55 Hgb 13.9 Hct 41.7 MCV 91.6 MCH 30.5 MCHC 33.3 RDW Std Deviation 51.1 H RDW Coeff of Yen 15.1 H Plt Count 252 MPV 10.0 Immature Gran % (Auto) 0.5 Neut % (Auto) 58.9 Lymph % (Auto) 26.7 [place] % (Auto) 10.2 Eos % (Auto) 3.3 Baso % (Auto) 0.4 Neut # (Auto) 6.42 Lymph # (Auto) 2.91 [place] # (Auto) 1.11 H Eos # (Auto) 0.36 Baso # (Auto) 0.04 Immature Gran # (Auto) 0.05 Sodium 134 L Potassium 4.0 Chloride 96 L Carbon Dioxide 33 H Anion Gap 5 BUN 29 H Creatinine 1.11 Est Cr Clr Drug Dosing 47.2 Est GFR ( Amer) 57.5 Est GFR (Non-Af Amer) 49.6 BUN/Creatinine Ratio 26.1 H Glucose 145 H POC Glucose 125 H Calcium 10.6 H Phosphorus 4.2 Magnesium 2.0
[2022-12-07] MEDS: SPIRONOLACTONE 12.5 MG TAB PO SCH (10:22)
[2022-12-07] MEDS: CHOLESTYRAMINE LIGHT 4 GM PKT PO SCH ×2 (10:22→20:30)
[2022-12-07] MEDS: TORSEMIDE 10 MG TAB PO SCH (10:22)
--- NOTE | 2022-12-07 12:04 | Hospitalist Progress Note ---
Date of Service December 07, 2022 Assessment & Plan (1) Pulmonary edema: Plan: per Dr. Cummins's notes with addendum: 72 y/o female with a hx of chronic afib on Eliquis, HFpEF, DM2, COPD, HTN, and other PMH as outlined in the HPI who presented with s/s of worsening chronic HF and new exertional chest pain. CXR with pulmonary vascular congestion. Received furosemide 40 mg IV x 1 dose in the ED. Last ECHO in Aug 2022 showed preserved LVEF. Negative troponin in the ED with no acute changes noted on EKG - Admitted to PCU - BP in the ED elevated with systolic >190 - Shannon cath, daily weight, measure Is and Os - Low sodium diet - Continued IV diuresis with furosemide 40 mg IV BID - now on hold as pt diuresed well since her admission - Consulted cardiology - appreciate their input, metoprolol increased Echo repeated The rhythm is atrial fibrillation with intermittent rapid ventricular response. EF 60 to 65%. There is severe concentric LV hypertrophy. LA is moderately dilated. Mild aortic regurg. Mild tricuspid regurg. Estimated systolic pulmonary pressure is 38 mmHg. The ascending aorta is moderately enlarged, 4.5 cm. 2/8 improving overall euvolemic Metoprolol XL increased to 50mg BID oral diuretics resumed monitor PT/OT (2) Chest pain: Plan: resolved (3) (HFpEF) heart failure with preserved ejection fraction: Plan: See plan for #1 (4) Chronic atrial fibrillation: Plan: Rate controlled on metoprolol (5) Chronic anticoagulation: Plan: continue Eliquis (6) Type 2 diabetes mellitus: Plan: Holding oral meds. Last A1c in Jun was 6.3 - Insulin sliding scale during admission - BSG ACHS - Diabetic diet BSG 122-125 (7) CKD (chronic kidney disease) stage 3, GFR 30-59 ml/min: Plan: crea stable (8) Essential hypertension: Plan: Metoprolol increased to BID Amlodipine added (9) Dyslipidemia: Plan: Continue statin Plan Continue baseline 2L O2 at HS. Code Status: Full Code DVT Prophylaxis: on chronic Eliquis Disposition PT/OT evaluation today Admission and Anticipated Discharge Date Admission Date: December 05, 2022 Subjective ff up for acute CHF, etc seen resting in chair, comfortable on room air states she feels improved overall dyspnea improving no chest pain, palpitations, dizziness somewhat weak with ambulation no other symptoms Review of Systems Review of Systems: all noted and negative except for above Physical Exam Physical Exam: General- oriented x 3, not in distress, speaks in sentences with no effort or accessory muscle use Eyes- anicteric Neck- no JVD Lungs- clear BS bilaterally, no rales/wheezes Heart- normal rate, regular rhythm; no murmurs Abdomen- normal bowel sounds, nondistended, soft, nontender Extremities- trace pretibial edema, no calf tenderness Neuro- alert, oriented x 3; no gross focal neurologic deficits Skin- warm & dry Results & Data Results & Data ([facility]) Vital Signs (Past 12 Hours) Vital Signs Temp Pulse Pulse Resp BP BP Pulse Ox 12/07/22 11:16 36.8 C 71 19 95/58 L 96 12/07/22 08:00 91 H 12/07/22 08:00 12/07/22 07:21 36.8 C 91 H 19 156/102 H 97 12/07/22 02:27 36.7 C 78 18 143/82 H 96 O2 Del Method 12/07/22 11:16 Room Air 12/07/22 08:00 12/07/22 08:00 Room Air 12/07/22 07:21 Room Air 12/07/22 02:27 Room Air all noted and reviewed including below
[2022-12-07] MEDS: METOPROLOL SUCC 50MG EXT REL TAB PO SCH (20:31)
[2022-12-07] MEDS ORDERED: amLODIPine BESYLATE 5 MG TAB PO SCH (21:00)
[2022-12-08] MEDS: MAGNESIUM OXIDE 400 MG TAB PO SCH (07:52)
[2022-12-08] MEDS: ATORVASTATIN 40 MG TAB PO SCH (07:52)
[2022-12-08] MEDS: APIXABAN 5 MG TABLET PO SCH (07:52)
[2022-12-08] MEDS: TORSEMIDE 10 MG TAB PO SCH (07:52)
[2022-12-08] MEDS: SPIRONOLACTONE 12.5 MG TAB PO SCH (07:52)
[2022-12-08] MEDS: DIVALPROEX DELAY RELEASE 500 MG TAB PO SCH (07:52)
[2022-12-08] MEDS: METOPROLOL SUCC 50MG EXT REL TAB PO SCH (07:52)
[2022-12-08] MEDS: lisinopril 10 MG TAB PO SCH (07:52)
[2022-12-08] MEDS: INSULIN ASPART PER UNIT SC SCH ×2 (09:21→12:14)
[2022-12-08] MEDS: CHOLESTYRAMINE LIGHT 4 GM PKT PO SCH (09:27)
--- NOTE | 2022-12-08 09:42 | Cardiology Progress Note ---
Date of Service December 08, 2022 Assessment & Plan (1) Hypertensive urgency, malignant: (2) Pulmonary edema: (3) (HFpEF) heart failure with preserved ejection fraction: (4) Chronic atrial fibrillation: Plan Patient is a complex 72-year-old female with longstanding persistent atrial fibrillation, hypertension with chronic diastolic heart failure who had subacute presentation of worsening dyspnea fatigue "shakiness" and worsening respiratory distress resulting in ER presentation. On evaluation patient with marked hypertension and evidence of pulmonary edema on chest x-ray Patient has responded to diuretics briskly 1. Acute on chronic diastolic heart failure with hypertensive urgency: Patient has responded promptly to diuretics. Echo demonstrates severe left hypertrophy with small ventricle. 2. Ascending aortic aneurysm as above, stable on 3. Unexplained weight loss. Repeat chest x-ray ordered for a.m. given granulomatous disease on past studies 12/08/2022 Acute hospitalization with acute on chronic diastolic heart failure, hypertensive urgency now clinically improved with diuresis, increase in antihypertensive regimen. Stable for cardiac discharge Resume torsemide at 10 mg p.o. daily, spironolactone at 12.5 mg/day Increased metoprolol succinate to 50 mg twice per day Continue lisinopril 10 mg p.o. daily, apixaban 5 mg twice per day. Resume Jardiance CHF instructions on discharge. Patient to monitor blood pressure daily Follow-up cardiology 2 to 4 weeks Admission and Anticipated Discharge Date Admission Date: December 05, 2022 Subjective Patient seen and examined, chart, medications, telemetry reviewed. Patient feels improved this morning. No respiratory distress. Blood pressure is better controlled. Still with mild tremor but no "shakiness" No chest pain or worsening shortness of breath with patient ambulatory in room Telemetry persistent atrial fibrillation with controlled ventricular response rate Review of Systems Review of Systems: All systems reviewed & are unremarkable except as noted in Subjective Physical Exam Constitutional: + obese; no acute distress Eyes: PERRL, conjunctivae normal, anicteric sclerae ENMT: external ear and nose normal, oropharynx normal Neck: trachea midline, no thyromegaly Respiratory: normal respiratory effort, lungs clear to auscultation Cardiovascular: Rate/Rhythm: + irregularly irregular Heart Sounds: normal S1, normal S2 and + murmur (Grade 1/6 systolic, no diastolic); no gallop Palpation: normal PMI Vessels: normal carotid upstroke and radial pulses pr esent; no JVD and no carotid bruit Extremities: no edema Gastrointestinal (Abdomen): normal bowel sounds, soft, nontender, no hepatosplenomegaly Musculoskeletal: no cyanosis or clubbing, extremities motor strength 5/5 Skin: no rashes, warm and dry Neurologic: PERRL, EOMI, accommodation nl, no face palsy, no dysarthria Psychiatric: A+Ox3, euthymic affect Results & Data ([facility]) Vital Signs (Past 12 Hours) Vital Signs Temp Pulse Resp BP Pulse Ox O2 Del Method 12/08/22 08:00 Room Air 12/08/22 07:42 36.8 C 68 19 123/88 93 Room Air 12/08/22 02:41 36.6 C 81 18 122/83 98 Room Air 12/07/22 23:02 36.6 C 74 18 138/80 91 Room Air
[2022-12-08 09:48] LABS: Basophils # (auto) 0.06 K/uL (0-0.2); Basophils % (auto) 0.7 %; Calcium 9.4 mg/dl (8.5-10.1); Creatinine Clr Calc Pharmacy 50.2 ml/min; Eosinophils # (auto) 0.41 K/uL (0-0.50); Eosinophils % (auto) 4.9 %; Est GFR (African American) 61.4 ml/min; Hematocrit (blood only) 39.8 % (37.0-47.0); Immature Granulocytes # (auto) 0.04 K/uL (0.01-0.20); Immature Granulocytes % (auto) 0.5 %; Lymphocytes # (auto) 2.69 K/uL (1.2-3.4); Magnesium 2.1 mg/dl (1.7-2.4); Mean Corpuscular Hemoglobin 30.5 pg (25.0-34.0); Mean Corpuscular Hgb Conc 32.7 g/dL (32.0-36.0); Mean Corpuscular Volume 93.4 fL (80.0-100.0); Mean Platelet Volume 10.3 fL (9.4-12.4); Monocytes # (auto) 0.66 K/uL (0.11-0.59); Monocytes % (auto) 7.8 %; Neutrophils # (auto) 4.55 K/uL (1.40-6.50); Neutrophils % (auto) 54.1 %; Platelet Count 238 K/uL (130-400); RDW Coefficient of Variation 14.9 % (11.5-14.5); RDW Standard Deviation 51.4 fL (36.4-46.3); Red Blood Count 4.26 M/uL (4.20-5.40); White Blood Count 8.41 K/ul (4.8-10.8)
[2022-12-08] MEDS ORDERED: TORSEMIDE 10 MG TAB PO SCH (10:00)
--- NOTE | 2022-12-08 12:16 | Hospitalist Progress Note ---
Date of Service December 08, 2022 delayed entry date of service noted above Assessment & Plan (1) Pulmonary edema: Plan: per Dr. Cummins's notes with addendum: 72 y/o female with a hx of chronic afib on Eliquis, HFpEF, DM2, COPD, HTN, and other PMH as outlined in the HPI who presented with s/s of worsening chronic HF and new exertional chest pain. CXR with pulmonary vascular congestion. Received furosemide 40 mg IV x 1 dose in the ED. Last ECHO in Aug 2022 showed preserved LVEF. Negative troponin in the ED with no acute changes noted on EKG - Admitted to PCU - BP in the ED elevated with systolic >190 - Shannon cath, daily weight, measure Is and Os - Low sodium diet - Continued IV diuresis with furosemide 40 mg IV BID - now on hold as pt diuresed well since her admission - Consulted cardiology - appreciate their input, metoprolol increased Echo repeated The rhythm is atrial fibrillation with intermittent rapid ventricular response. EF 60 to 65%. There is severe concentric LV hypertrophy. LA is moderately dilated. Mild aortic regurg. Mild tricuspid regurg. Estimated systolic pulmonary pressure is 38 mmHg. The ascending aorta is moderately enlarged, 4.5 cm. / improved overall euvolemic Metoprolol XL increased to 50mg BID oral diuretics resumed Cleared for discharge by cardiology service (2) Chest pain: Plan: resolved (3) (HFpEF) heart failure with preserved ejection fraction: Plan: See plan for #1 (4) Chronic atrial fibrillation: Plan: Rate controlled on metoprolol (5) Chronic anticoagulation: Plan: continue Eliquis (6) Type 2 diabetes mellitus: Plan: Last A1c in Jun was 6.3 Resume usual oral medications (7) CKD (chronic kidney disease) stage 3, GFR 30-59 ml/min: Plan: crea stable (8) Essential hypertension: Plan: Metoprolol increased to 50 mg BID Amlodipine added (9) Dyslipidemia: Plan: Continue statin Plan Continue baseline 2L O2 at HS. Code Status: Full Code DVT Prophylaxis: on chronic Eliquis Disposition Discharge to home Follow-up with PCP in 1 week Follow-up cardiology in 2 to 3 weeks Admission and Anticipated Discharge Date Admission Date: December 05, 2022 Subjective ff up for CHF exacerbation, hypertension, etc. Seen resting in bed, comfortable, not in distress States she feels much better overall no chest pain, dyspnea, palpitations, dizziness Ambulating with no problems States he is ready for discharge Review of Systems Review of Systems: all noted and negative except for above Physical Exam Physical Exam: General- oriented x 3, not in distress, speaks in sentences with no effort or accessory muscle use Eyes- anicteric Neck- no JVD Lungs- clear breath sounds bilaterally, no rales/wheezes Heart- normal rate, regular rhythm; no murmurs Abdomen- normal bowel sounds, nondistended, soft, nontender Extremities- no pretibial edema, no calf tenderness Neuro- alert, oriented x 3; no gross focal neurologic deficits Skin- warm & dry Results & Data Results & Data ([facility]) Vital Signs (Past 12 Hours) Vital Signs Temp Pulse Pulse Resp BP BP Pulse Ox 12/08/22 11:32 36.4 C L 78 77 16 123/88 126/76 95 12/08/22 11:21 36.4 C L 77 16 126/76 95 12/08/22 08:00 12/08/22 07:42 36.8 C 68 19 123/88 93 12/08/22 02:41 36.6 C 81 18 122/83 98 O2 Del Method 12/08/22 11:32 12/08/22 11:21 Room Air 12/08/22 08:00 Room Air 12/08/22 07:42 Room Air 12/08/22 02:41 Room Air
--- NOTE | 2022-12-22 16:45 | Discharge Summary ---
Discharge Summary Date of Service December 22, 2022 Notes For Next Care Provider Please refer to assessment and plan below Medication Changes From Visit Metoprolol XL changed to 50 mg twice daily Admission HPI Per Admitting Provider This is a 72 y/o female with a PMH of chronic atrial fibrillation on chronic anticoagulation ([id number]), HFpEF, DM2, CKD3, HTN, COPD, dyslipidemia, ascending aorta dilatation, hx melanoma, and depression who was referred to the ED today by her PCP office after she presented with dyspnea, chest discomfort and shakiness with exertion for the last five days. They had referred her to the ED last week but she did not go that day and instead came for evaluation today in the PCP office who referred her to the ED. Pt reports she started with episodes of "shakiness" around end of 2021. These episodes mainly occur in her hands, may last hours, have gradually been increasing in duration. She has not noticed any specific pattern to them other than being worse in the evening. A few weeks ago, she also started with dyspnea on exertion that has also gradually worsened. She now will get short of breath even just walking to the bathroom. May have associated racing heart. Symptoms improve with rest although it usually takes 15-20 minutes to feel back to baseline. She notes two pillow orthopnea. Over the last few days to week, she has developed left chest pain with exertion, resolves with rest. May happen multiple times per day. Occasional dizziness with exertion or with changing positions, specifically when she stands up, but no syncopal episode. Denies pedal edema. Increased urinary frequency but no dysuria, hematuria. Appetite decreased at baseline - reports 25 lb unintentional weight loss over the last three months. Notes BP has been elevated when she checks it at home - last night BP 190s/120s. No routine meds yet today. Blood sugars at home in the 120s. Last A1c on 07/28/22 was 6.3. Most recent ECHO was in Aug 2022 - LVEF 60-64%, mild aortic regurgitation, mild mitral regurgitation, ascending aorta measuring 4.5 cm (measured 4.[address] same month). Admission Exam Per Admitting Provider Constitutional: well developed and well nourished; no acute distress Eyes: PERRL, conjunctivae normal, anicteric sclerae ENMT: external ear and nose normal, oropharynx normal Neck: trachea midline Respiratory: no respiratory distress and no labored breathing Auscultation: lungs clear to auscultation bilaterally (other than minimal crackles at left base) Cardiovascular: Rate/Rhythm: + irregularly irregular Vessels: radial pulses present Extremities: no pedal edema Gastrointestinal (Abdomen): Inspection/Auscultation: normal bowel sounds; abdomen not distended Percussion/Palpation: abdomen soft; abdomen nontender Musculoskeletal: Head/Neck/Chest: normocephalic, head atraumatic and neck supple Skin: no jaundice Neurologic: moves all extremities; no focal motor deficits and not confused Psychiatric: A+Ox3, euthymic affect Principal Dx & Hospital Course #1 = Principal Diagnosis (1) Pulmonary edema: per Dr. Cummins's notes with addendum: 72 y/o female with a hx of chronic afib on Eliquis, HFpEF, DM2, COPD, HTN, and other PMH as outlined in the HPI who presented with s/s of worsening chronic HF and new exertional chest pain. CXR with pulmonary vascular congestion. Received furosemide 40 mg IV x 1 dose in the ED. Last ECHO in Aug 2022 showed preserved LVEF. Negative troponin in the ED with no acute changes noted on EKG - Admitted to PCU - BP in the ED elevated with systolic >190 - Shannon cath, daily weight, measure Is and Os - Low sodium diet - Continued IV diuresis with furosemide 40 mg IV BID - now on hold as pt diuresed well since her admission - Consulted cardiology - appreciate their input, metoprolol increased Echo repeated The rhythm is atrial fibrillation with intermittent rapid ventricular response. EF 60 to 65%. There is severe concentric LV hypertrophy. LA is moderately dilated. Mild aortic regurg. Mild tricuspid regurg. Estimated systolic pulmonary pressure is 38 mmHg. The ascending aorta is moderately enlarged, 4.5 cm. 12/08 improved overall euvolemic Metoprolol XL increased to 50mg BID oral diuretics resumed Cleared for discharge by cardiology service (2) Chest pain: resolved (3) (HFpEF) heart failure with preserved ejection fraction: See plan for #1 (4) Chronic atrial fibrillation: Rate controlled on metoprolol (5) Chronic anticoagulation: continue Eliquis (6) Type 2 diabetes mellitus: Last A1c in Jun was 6.3 Resume usual oral medications (7) CKD (chronic kidney disease) stage 3, GFR 30-59 ml/min: crea stable (8) Essential hypertension: Metoprolol increased to 50 mg BID Amlodipine added (9) Dyslipidemia: Continue statin Plan Continue baseline 2L O2 at HS. Code Status: Full Code DVT Prophylaxis: on chronic Eliquis Disposition Discharge to home Follow-up with PCP in 1 week Follow-up cardiology in 2 to 3 weeks Discharge Exam General- oriented x 3, not in distress, speaks in sentences with no effort or accessory muscle use Eyes- anicteric Neck- no JVD Lungs- clear breath sounds bilaterally, no rales/wheezes Heart- normal rate, regular rhythm; no murmurs Abdomen- normal bowel sounds, nondistended, soft, nontender Extremities- no pretibial edema, no calf tenderness Neuro- alert, oriented x 3; no gross focal neurologic deficits Skin- warm & dry Updated Medication List Medication Instructions Recorded Confirmed Type albuterol sulfate 2.5 mg/3 mL 2.5 mg inhalation QID PRN 12/05/22 12/05/22 History (0.083 %) solution for nebulization Shortness Of Breath Or Wheezing apixaban 5 mg tablet (Eliquis) 5 mg PO BID 12/05/22 12/05/22 History atorvastatin 40 mg tablet 40 mg PO DAILY 12/05/22 12/05/22 History cholestyramine (with sugar) 4 gram 1 ea PO BID 12/05/22 12/05/22 History powder for susp in a packet divalproex 500 mg tablet,delayed 500 mg PO BID 12/05/22 12/05/22 History release empagliflozin 25 mg tablet 25 mg PO DAILY 12/05/22 12/05/22 History (Jardiance) glipizide 2.5 mg tablet, extended 2.5 mg PO DAILY 12/05/22 12/05/22 History release 24 hr lisinopril 10 mg tablet 10 mg PO DAILY 12/05/22 12/05/22 History metformin 500 mg tablet,extended 1,000 mg PO BID17 12/05/22 12/05/22 History release 24 hr spironolactone 25 mg tablet 12.5 mg PO DAILY 12/05/22 12/05/22 History torsemide 10 mg tablet 10 mg PO QAM 12/05/22 12/05/22 History metoprolol succinate 50 mg 50 mg PO BID 14 days #28 tabs 12/08/22 Rx tablet,extended release 24 hr Hospital Stay Data Consultations 12/05/22 12:41 ED Decision to Admit Stat 12/05/22 14:14 Consult Cardiology Routine Pending Results Patient Have Any Pending Studies at Discharge: No Discharge Instructions Given to Patient (Per Discharging Provider) PLEASE REFER TO YOUR NEW MEDICATION LIST AND FOLLOW INSTRUCTIONS CAREFULLY. YOUR NEW MEDICATIONS INCLUDE: INCREASE METOPROLOL XL 50MG FROM DAILY TO TWICE A DAY PLEASE CALL YOUR PRIMARY CARE PHYSICIAN OR RETURN TO THE ER IF WITH WORSENING OF SYMPTOMS, INCLUDING SHORTNESS OF BREATH, LEG SWELLING, CHEST PAIN, DIZZINESS, WEAKNESS, ETC FOLLOW UP WITH PRIMARY CARE PHYSICIAN OUTLINED ABOVE. FOLLOW UP WITH OPERATOR ENGINEER IN 2-3 WEEKS. Total Time Total Time Spent Total Time Spent (In Minutes): >30 minutes
== END 2022-12-08 15:16 | disposition home health service (06) | DRG 304 ==
LOC: ED 09:43 → SUATTDRO 13:05 → 2E 13:05